=== PATIENT | male | born 1980 | race Caucasian/White ===

== ENCOUNTER 2017-04-08 10:37 | Emergency (ER) | payer BC, OTHER ==
[~2017-04-08] VITALS: Ht 172.7 cm; Wt 79.4 kg
[2017-04-08 10:37] VITALS: BP 149/90
== END 2017-04-08 11:20 | disposition home or self-care (01) ==
LOC: ER 10:40
DX: H00.014 Hordeolum externum left upper eyelid (principal)
CPT/HCPCS: A4606; Z7502; Z7610